=== PATIENT | female | born 1995 | race Two or more races ===

== ENCOUNTER 2018-05-07 17:38 | Emergency (ER) | payer SELFPAY ==
[~2018-05-07] VITALS: Ht 154.9 cm; Wt 52.2 kg
[2018-05-07 17:57] VITALS: BP 135/64
[2018-05-07] MEDS ORDERED: AMOX500T PO (18:10)
--- NOTE | 2018-05-07 18:10 | PHYS DOC ---
Past Medical History Past Medical History: No Pertinent History Past Surgical History: No Surgical History Alcohol Use: None Drug Use: None Adult General Chief Complaint Chief Complaint: SORE THROAT HPI HPI Patient is a 23 year old female who presents to the emergency room with complaints of fever, sore throat, dysphagia since yesterday. She denies any cough, nasal congestion, ear pain, shortness of breath, wheezing, nausea, vomiting, diarrhea, or abdominal pain. Patient states she took some Tylenol helped to break her fever. She denies any rash. She denies any medical or surgical history, denies any drug allergies, does not smoke, drink alcohol, or do drugs. Review of Systems Review of Systems Constitutional: Reports fever Eyes: Denies change in visual acuity, redness, or eye pain [] HENT: Denies nasal congestion or ear pain, reports sore throat [] Respiratory: Denies cough or wheezing, or shortness of breath [] GI: Denies abdominal pain, nausea, vomiting, or diarrhea [] Integument: Denies rash or skin lesions [] Neurologic: Denies headache, focal weakness or sensory changes [] All other systems were reviewed and found to be within normal limits, except as documented in this note. Physical Exam Physical Exam Constitutional: Well developed, well nourished, no acute distress, non-toxic appearance. [] HENT: Normocephalic, atraumatic, bilateral external ears normal, bilateral TMs normal, posterior pharynx noted to be erythematous with exudate present on bilateral tonsils, tonsils 1+ bilaterally, Oropharynx moist, nose normal. [] Eyes: conjunctiva normal, no discharge. [] Neck: Normal range of motion, no tenderness, mild anterior cervical lymphadenopathy on the left, No stridor. [] Cardiovascular:Heart rate regular rhythm, no murmur [] Lungs & Thorax: Bilateral breath sounds clear to auscultation [] Skin: Warm, dry, no erythema, no rash. [] Neurologic: Alert and oriented X 3, normal motor function, normal sensory function, no focal deficits noted. [] Psychologic: Affect normal, judgement normal, mood normal. [] Current Patient Data Vital Signs Vital Signs Date Time Temp Pulse Resp B/P (MAP) Pulse Ox O2 Delivery O2 Flow Rate FiO2 05/07/18 17:57 99.6 118 18 135/64 (87) 99 Room Air 99.6 EKG EKG [] Radiology/Procedures Radiology/Procedures [] Course & Med Decision Making Course & Med Decision Making Pertinent Labs and Imaging studies reviewed. (See chart for details) dx: Strep pharyngitis Clinically patient presents as strep pharyngitis. Prescription for amoxicillin written. Patient encouraged to use salt water gargles, and there are toothbrush away after she's been on the antibiotics for 24 hours. Follow-up with her primary care doctor if symptoms persist. Return to the emergency room if symptoms worsen. Patient verbalized an understanding of home care, medications, follow-up, and return to ED instructions and was in agreement with the plan of care. Staff Physician Addendum: I was working in the ER during the course of this patient's visit. I was available for consultation as needed, but I was not directly involved in the care of this patient. [] Dragon Disclaimer Dragon Disclaimer This electronic medical record was generated, in whole or in part, using a voice recognition dictation system. Departure Departure Impression: Primary Impression: Strep pharyngitis Disposition: HOME, SELF-CARE Condition: STABLE Referrals: NO PCP (PCP) Patient Instructions: Strep Throat, [id number] Additional Instructions: Fill prescription and use as directed. Recommend warm salt water gargles as needed for relief of discomfort. Alternate Tylenol and ibuprofen as needed for fever/pain. Discard your toothbrush tomorrow and begin using a new toothbrush. Follow-up with primary care doctor if symptoms persist. Return to the ER if symptoms worsen. Scripts Amoxicillin (AMOXICILLIN) 500 Mg Tablet 1 TAB PO BID for 10 Days, #20 TAB 0 Refills Prov: LASHANDA AGUAYO APRN 05/07/18 LASHANDA AGUAYO APRN May 07, 2018 18:10 SHEFALI SAUL MD May 08, 2018 18:24
== END 2018-05-07 18:15 | disposition home or self-care (01) ==
LOC: ER 17:38
DX: J02.0 Streptococcal pharyngitis (principal); B95.5 Unspecified streptococcus as the cause of diseases classified elsewhere
CPT/HCPCS: 99283

== ENCOUNTER 2018-07-21 19:07 | Emergency (ER) | payer SELFPAY ==
[~2018-07-21] VITALS: Ht 152.4 cm; Wt 61.5 kg
[~2018-07-21 19:07] MED LIST: AMOX500T PO
[2018-07-21 19:21] VITALS: BP 152/83
[2018-07-21] MEDS ORDERED: HYDROcodone/APAP 10/325 1 TAB TABLET PO ONE (19:45)
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
[2018-07-21] MEDS ORDERED: TRAM50TA PO (20:23)
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
== END 2018-07-21 20:30 | disposition home or self-care (01) ==
LOC: ER 19:07
DX: S06.0X0A Concussion without loss of consciousness, initial encounter (principal); V43.52XA Car driver injured in collision with other type car in traffic accident, initial encounter; Y93.89 Activity, other specified; Y92.410 Unspecified street and highway as the place of occurrence of the external cause; Y99.8 Other external cause status
CPT/HCPCS: 70450; 81025; 99284